=== PATIENT | female | born 1955 | race Caucasian/White ===

== ENCOUNTER 2017-06-08 10:24 | Inpatient (IN) | payer MEDICAID ==
[~2017-06-08] VITALS: Ht 152.4 cm; Wt 10.3 kg
[~2017-06-08 10:24] MED LIST: CLOP75TA28 PO; FLUO-125 PO; LEVO50TA7 PO; OLAN5TAB30 PO; TIZA4CAP5 PO; VERA1TAB9 PO
[2017-06-08] MEDS ORDERED: SODIUM CHLORIDE 0.9% 1,000 ML IV ONE (11:45)
[2017-06-08 12:03] LABS: Albumin 1.1 g/dL (3.4-5.0); Anion Gap 13 (5-15); Aspartate Aminotransferase 19 U/L (15-37); BUN/Creatinine Ratio 11.2; Blood Urea Nitrogen 27 mg/dL (7-18); Calcium 7.1 mg/dL (8.5-10.1); Carbon Dioxide 14 mmol/L (21-32); Chloride 118 mmol/L (98-107); GFR African American 26 mL/min; GFR Non-African American 22 mL/min; Glucose 106 mg/dL (74-106); Potassium 4.5 mmol/L (3.5-5.1); Sodium 145 mmol/L (136-145)
[2017-06-08 12:08] LABS: Alkaline Phosphatase 137 U/L (45-117); Bilirubin, Total 0.1 mg/dL (0.2-1.0); Total Protein 4.4 g/dL (6.4-8.2)
[2017-06-08 12:31] LABS: Basophils # (auto) 0.1 uL; Hematocrit 27.2 % (36.0-46.0); Hemoglobin 8.4 g/dL (12.2-16.2); Mean Corpuscular Hgb Conc. 30.8 g/dL (32.0-36.0); Monocytes # (auto) 0.4 uL; White Blood Cell 10.1 10^3/uL (4.4-10.8)
[2017-06-08 12:32] LABS: Basophils % (auto) 0.8 % (0.0-2.0); Eosinophils # (auto) 0 uL; Eosinophils % (auto) 0.5 % (0.0-7.0); Lymphocytes # (auto) 1.2 uL; Lymphocytes % (auto) 12.3 % (10.0-50.0); Mean Corpuscular Hemoglobin 32.8 pg (28.0-32.0); Mean Corpuscular Volume 106.5 fL (80.0-100.0); Mean Platelet Volume 7.5 fL (6.9-10.8); Monocytes % (auto) 3.6 % (0.0-12.0); Neutrophils # (auto) 8.4 uL; Neutrophils % (auto) 82.8 % (37.0-80.0); Nucleated Red Blood Cells % 0.1 %; Platelet Count (auto) 443 10^3/uL (140-450)
[2017-06-08] MEDS ORDERED: NITROGLYCERIN 0.4 MG SL TAB SL PRN (14:30)
[2017-06-08] MEDS ORDERED: cefTRIAXone 1GM/50ML D5W 50 ML IV ONE (14:30)
[2017-06-08] MEDS ORDERED: MORPHINE SULF INJ 2 MG/ML SYRINGE 1ML IV PRN (14:30)
[2017-06-08] MEDS: SODIUM CHLORIDE 0.9% 1,000 ML IV SCH (15:17)
[2017-06-08 15:20] LABS: Urine Bilirubin Negative (Negative); Urine Blood 1+ /uL (Negative); Urine Color Yellow (Yellow); Urine Glucose Normal (Normal); Urine Ketone Negative (Negative); Urine Nitrite Negative (Negative); Urine RBC 13 /hpf (0 - 4); Urine Urobilinogen Normal (Negative); Urine WBC Clumps PRESENT /hpf (None Seen)
[2017-06-08] MEDS ORDERED: LABETALOL HCL 5 MG/ML 4ML SYRINGE IV PRN ×2 (16:45)
[2017-06-08 17:38] LABS: Temperature: 24.3 C (20.0-25.0)
[2017-06-08] MEDS ORDERED: ENOXAPARIN SOD 30 MG/0.3 ML SYRINGE SC ONE (18:15)
[2017-06-08 20:10] VITALS: BP 99/64
[2017-06-08 22:00] VITALS: BP 99/64
[2017-06-08] MEDS: ATORVASTATIN 20 MG TAB PO SCH (22:30)
[2017-06-09] MEDS: SODIUM CHLORIDE 0.9% 1,000 ML IV SCH ×2 (00:30→06:14)
[2017-06-09 05:00] VITALS: BP 92/58
[2017-06-09] MEDS ORDERED: LEVOTHYROXINE SODIUM 25 MCG TAB PO SCH (07:00)
[2017-06-09 07:46] LABS: Eosinophils # (auto) 0.1 uL; Lymphocytes # (auto) 2.2 uL; Monocytes # (auto) 0.3 uL
[2017-06-09 07:50] LABS: BUN/Creatinine Ratio 12.5; Basophils # (auto) 0.1 uL; Basophils % (auto) 1.1 % (0.0-2.0); Calcium 6.9 mg/dL (8.5-10.1); Eosinophils % (auto) 0.8 % (0.0-7.0); Hematocrit 28.6 % (36.0-46.0); Hemoglobin 9.6 g/dL (12.2-16.2); Mean Corpuscular Hemoglobin 33.8 pg (28.0-32.0); Mean Corpuscular Hgb Conc. 33.6 g/dL (32.0-36.0); Mean Corpuscular Volume 100.7 fL (80.0-100.0); Mean Platelet Volume 7.1 fL (6.9-10.8); Neutrophils # (auto) 5.8 uL; Neutrophils % (auto) 68.1 % (37.0-80.0); Nucleated Red Blood Cells % 0.1 %; Platelet Count (auto) 498 10^3/uL (140-450); Potassium 4.6 mmol/L (3.5-5.1); Red Cell Distribution Width 16.7 % (11.8-14.3); White Blood Cell 8.6 10^3/uL (4.4-10.8)
[2017-06-09 08:00] VITALS: BP 92/57
[2017-06-09 09:04] VITALS: BP 92/57
[2017-06-09] MEDS: PANTOPRAZOLE 40 MG TAB PO SCH (09:41)
[2017-06-09] MEDS: ENOXAPARIN SOD 30 MG/0.3 ML SYRINGE SC SCH (09:41)
[2017-06-09] MEDS: cefTRIAXone 1GM/50ML D5W 50 ML IV SCH (09:41)
[2017-06-09] MEDS: CLOPIDOGREL BISULFATE 75 MG TAB PO SCH (09:41)
[2017-06-09] MEDS: SOD CHL 0.45% 1,000 ML IV SCH ×2 (10:15→23:35)
[2017-06-09] MEDS ORDERED: LEVOTHYROXINE SODIUM 100 MCG/5 ML INJ IV ONE (10:15)
[2017-06-09] MEDS ORDERED: FLUoxetine HCL 20 MG CAP PO ONE (10:30)
[2017-06-09 14:20] VITALS: BP 123/69
[2017-06-09 16:56] VITALS: BP 121/76
[2017-06-09] MEDS ORDERED: MIRT30TA PO (19:27)
[2017-06-09] MEDS ORDERED: OLAN5TAB30 PO (19:27)
[2017-06-09] MEDS ORDERED: HYDR-4683 PO (19:27)
[2017-06-09] MEDS: ATORVASTATIN 20 MG TAB PO SCH (21:31)
[2017-06-10 01:00] VITALS: BP 113/62
[2017-06-10] MEDS: SOD CHL 0.45% 1,000 ML IV SCH (03:24)
[2017-06-10 04:44] VITALS: BP 132/71
[2017-06-10] MEDS: LEVOTHYROXINE SODIUM 25 MCG TAB PO SCH (06:00)
[2017-06-10 07:19] LABS: BUN/Creatinine Ratio 10.5; Calcium 7.3 mg/dL (8.5-10.1); Potassium 4.3 mmol/L (3.5-5.1)
[2017-06-10 08:52] VITALS: BP 134/80
[2017-06-10] MEDS: cefTRIAXone 1GM/50ML D5W 50 ML IV SCH (08:57)
[2017-06-10] MEDS: PANTOPRAZOLE 40 MG TAB PO SCH (10:56)
[2017-06-10] MEDS: FLUoxetine HCL 20 MG CAP PO SCH (10:56)
[2017-06-10] MEDS: CLOPIDOGREL BISULFATE 75 MG TAB PO SCH (10:56)
[2017-06-10] MEDS: ENOXAPARIN SOD 30 MG/0.3 ML SYRINGE SC SCH (10:56)
[2017-06-10 13:00] VITALS: BP 126/67
[2017-06-10] MEDS: SODIUM BICARBONATE 50ML VIAL 50 ML in SOD CHL 0.45% 1,000 ML IV SCH (13:00)
[2017-06-10] MEDS ORDERED: MULTIPLE VITAMINS W/ MINERALS TAB PO ONE (13:30)
[2017-06-10] MEDS ORDERED: ASCORBIC ACID 500 MG TAB PO ONE (13:30)
[2017-06-10 16:57] VITALS: BP 125/74
[2017-06-10] MEDS: ATORVASTATIN 20 MG TAB PO SCH (21:27)
[2017-06-10] MEDS: ASCORBIC ACID 500 MG TAB PO SCH (21:27)
[2017-06-10 21:58] VITALS: BP 135/73
[2017-06-11 05:00] VITALS: BP 126/70
[2017-06-11] MEDS: LEVOTHYROXINE SODIUM 25 MCG TAB PO SCH (06:02)
[2017-06-11 06:37] LABS: Calcium 7.3 mg/dL (8.5-10.1); Potassium 4.4 mmol/L (3.5-5.1)
[2017-06-11 06:41] LABS: BUN/Creatinine Ratio 10.3
[2017-06-11 08:00] VITALS: BP 130/74
[2017-06-11] MEDS: FLUoxetine HCL 20 MG CAP PO SCH (10:00)
[2017-06-11] MEDS: ASCORBIC ACID 500 MG TAB PO SCH ×2 (10:00→21:52)
[2017-06-11] MEDS: ENOXAPARIN SOD 30 MG/0.3 ML SYRINGE SC SCH (10:00)
[2017-06-11] MEDS: CLOPIDOGREL BISULFATE 75 MG TAB PO SCH (10:00)
[2017-06-11] MEDS: cefTRIAXone 1GM/50ML D5W 50 ML IV SCH (10:00)
[2017-06-11] MEDS: SODIUM BICARBONATE 50ML VIAL 50 ML in SOD CHL 0.45% 1,000 ML IV SCH (10:01)
[2017-06-11] MEDS: PANTOPRAZOLE 40 MG TAB PO SCH (10:01)
[2017-06-11] MEDS: MULTIPLE VITAMINS W/ MINERALS TAB PO SCH (10:01)
[2017-06-11 12:00] VITALS: BP 126/70
[2017-06-11] MEDS: D5W 5% 1,000 ML IV SCH (13:37)
[2017-06-11] MEDS ORDERED: MORPHINE SULFATE 10 MG/ML INJ 1ML SDV IV PRN (16:15)
[2017-06-11 17:05] VITALS: BP 123/68
[2017-06-11 21:08] VITALS: BP 127/71
[2017-06-11] MEDS: ATORVASTATIN 20 MG TAB PO SCH (21:52)
[2017-06-12] MEDS: D5W 5% 1,000 ML IV SCH (01:26)
[2017-06-12 05:00] VITALS: BP 129/75
[2017-06-12] MEDS: LEVOTHYROXINE SODIUM 25 MCG TAB PO SCH ×2 (05:57→09:35)
[2017-06-12 06:37] LABS: BUN/Creatinine Ratio 10.1; Calcium 7.2 mg/dL (8.5-10.1); Potassium 3.7 mmol/L (3.5-5.1)
[2017-06-12 08:00] VITALS: BP 124/73
[2017-06-12] MEDS: cefTRIAXone 1GM/50ML D5W 50 ML IV SCH (09:15)
[2017-06-12 09:28] VITALS: BP 124/73
[2017-06-12] MEDS: ENOXAPARIN SOD 30 MG/0.3 ML SYRINGE SC SCH (09:35)
[2017-06-12] MEDS: MULTIPLE VITAMINS W/ MINERALS TAB PO SCH (09:35)
[2017-06-12] MEDS: CLOPIDOGREL BISULFATE 75 MG TAB PO SCH (09:35)
[2017-06-12] MEDS: FLUoxetine HCL 20 MG CAP PO SCH (09:36)
[2017-06-12] MEDS: ASCORBIC ACID 500 MG TAB PO SCH (09:36)
[2017-06-12] MEDS: PANTOPRAZOLE 40 MG TAB PO SCH (09:36)
[2017-06-12] MEDS ORDERED: ATOR20TA50 PO (11:16)
== END 2017-06-12 12:40 | disposition home or self-care (01) | DRG 720 ==
LOC: EDBD 10:24 → ER 10:24 → TELE 10:25 → TELE-CENTR 20:10
PROVIDERS: ADMIT Internal Medicine; ATTEND Internal Medicine
DX: A41.9 Sepsis, unspecified organism (principal); I63.512 Cerebral infarction due to unspecified occlusion or stenosis of left middle cerebral artery; E43 Unspecified severe protein-calorie malnutrition; L89.313 Pressure ulcer of right buttock, stage 3; I95.9 Hypotension, unspecified; E87.8 Other disorders of electrolyte and fluid balance, not elsewhere classified; E87.1 Hypo-osmolality and hyponatremia; N18.3 Chronic kidney disease, stage 3 (moderate); I69.351 Hemiplegia and hemiparesis following cerebral infarction affecting right dominant side; E83.51 Hypocalcemia; J44.9 Chronic obstructive pulmonary disease, unspecified; I12.9 Hypertensive chronic kidney disease with stage 1 through stage 4 chronic kidney disease, or unspecified chronic kidney disease; N39.0 Urinary tract infection, site not specified; E03.9 Hypothyroidism, unspecified; D64.9 Anemia, unspecified; E78.5 Hyperlipidemia, unspecified; G89.29 Other chronic pain; M54.5 Low back pain; R47.1 Dysarthria and anarthria; G40.909 Epilepsy, unspecified, not intractable, without status epilepticus; R47.01 Aphasia; Z79.02 Long term (current) use of antithrombotics/antiplatelets; Z79.899 Other long term (current) drug therapy; Z68.21 Body mass index [BMI] 21.0-21.9, adult
CPT/HCPCS: 36415; 51702; 70450; 70551; 71010; 78582; 80048; 80053; 81001; 82270; 82533; 82607; 82746; 83540; 83550; 83735; 84443; 84484; 85025; 85379; 87086; 92610; 93005; 94761; 95819; 96361; 96365; 96372; 97163; J0696; J3490

== ENCOUNTER 2017-07-22 10:54 | Inpatient (IN) | payer MEDICAID ==
[~2017-07-22] VITALS: Ht 160 cm; Wt 55.0 kg
[2017-07-22] VITALS (7 sets, daily range): BP systolic 78–94; BP diastolic 31–67
[~2017-07-22 10:54] MED LIST changes: +ATOR20TA50 PO; +HYDR-4683 PO; +MIRT30TA PO
[2017-07-22] MEDS ORDERED: SODIUM CHLORIDE 0.9% 1,000 ML IVB ONE (11:03)
[2017-07-22 11:32] LABS: Eosinophils # (auto) 0 uL; Hemoglobin 8.4 g/dL (12.2-16.2); Mean Corpuscular Hemoglobin 31.1 pg (28.0-32.0); Mean Corpuscular Hgb Conc. 28.2 g/dL (32.0-36.0); Monocytes # (auto) 0.5 uL
[2017-07-22 11:34] LABS: Basophils # (auto) 0 uL; Basophils % (auto) 0.5 % (0.0-2.0); Hematocrit 29.7 % (36.0-46.0); Lymphocytes # (auto) 1.1 uL; Lymphocytes % (auto) 12.8 % (10.0-50.0); Mean Corpuscular Volume 110.4 fL (80.0-100.0); Monocytes % (auto) 5.9 % (0.0-12.0); Neutrophils # (auto) 7.2 uL; Neutrophils % (auto) 80.8 % (37.0-80.0); Nucleated Red Blood Cells % 0.6 %; Platelet Count (auto) 205 10^3/uL (140-450); White Blood Cell 8.9 10^3/uL (4.4-10.8)
[2017-07-22 11:35] LABS: Red Cell Distribution Width 22.7 % (11.8-14.3)
[2017-07-22 11:51] LABS: Albumin 1.1 g/dL (3.4-5.0); Anion Gap 17 (5-15); Blood Urea Nitrogen 69 mg/dL (7-18); Calcium 7.5 mg/dL (8.5-10.1); Carbon Dioxide 10 mmol/L (21-32); Chloride 148 mmol/L (98-107); Glucose 58 mg/dL (74-106); Magnesium 2.5 mg/dL (1.6-2.6); Potassium 4.5 mmol/L (3.5-5.1)
[2017-07-22 11:54] LABS: Aspartate Aminotransferase 64 U/L (15-37); BUN/Creatinine Ratio 11.6; GFR African American 9 mL/min; GFR Non-African American 8 mL/min
[2017-07-22 11:56] LABS: INR 1.12 (0.9-1.15); Partial Thromboplastin Time 21.7 sec (22.64-33.71); Prothrombin Time 12.2 sec (9.37-12.3)
[2017-07-22 12:01] LABS: Alkaline Phosphatase 101 U/L (45-117); Bilirubin, Total 0.3 mg/dL (0.2-1.0); Total Protein 4.9 g/dL (6.4-8.2)
[2017-07-22 12:25] LABS: Sodium 175 mmol/L (136-145)
[2017-07-22 12:26] LABS: Anisocytosis Slight; Macrocytosis Moderate; Ovalocytes FEW; Platelet Estimate Adequate
[2017-07-22] MEDS ORDERED: SOD CHL 0.45% 1,000 ML IV ONE (12:30)
[2017-07-22] MEDS ORDERED: DEXTROSE (50%) 50ML SYRG IV ONE (12:30)
[2017-07-22] MEDS ORDERED: TEMAZEPAM 15 MG CAP PO PRN (14:45)
[2017-07-22] MEDS ORDERED: PROMETHAZINE HCL 25 MG/ML 1ML IV PRN (14:45)
[2017-07-22] MEDS ORDERED: HYDROcodone-ACET 5/325MG TAB PO PRN (14:45)
[2017-07-22] MEDS ORDERED: MORPHINE SULF INJ 2 MG/ML SYRINGE 1ML IV PRN ×2 (14:45)
[2017-07-22] MEDS ORDERED: ACETAMINOPHEN 500 MG TAB PO PRN (14:45)
[2017-07-22] MEDS ORDERED: NITROGLYCERIN 0.4 MG SL TAB SL PRN (14:45)
[2017-07-22] MEDS ORDERED: LORazepam 0.5 MG TAB PO PRN (14:45)
[2017-07-22] MEDS ORDERED: LACTULOSE 20Gm/30ML SOLN PO PRN (14:45)
[2017-07-22] MEDS ORDERED: D5W/SOD CHL 0.45% 1,000 ML IV SCH (14:45)
[2017-07-22 15:44] LABS: Urine Bilirubin Negative (Negative); Urine Blood 2+ /uL (Negative); Urine Color Yellow (Yellow); Urine Glucose Normal (Normal); Urine Ketone Negative (Negative); Urine Nitrite Negative (Negative); Urine Urobilinogen Normal (Negative)
[2017-07-22 15:50] LABS: BUN/Creatinine Ratio 12.3; Potassium 4.7 mmol/L (3.5-5.1)
[2017-07-22] MEDS: D5W/SOD CHL 0.2% 1,000 ML IV SCH (16:03)
[2017-07-22 16:04] LABS: Urine RBC 2 /hpf (0 - 4); Urine Squamous Epithelial Cell FEW /hpf (<5)
[2017-07-22 16:05] LABS: Urine Mucus FEW (None Seen)
[2017-07-22] MEDS ORDERED: cefTRIAXone 1GM/50ML D5W 50 ML IV ONE (16:30)
[2017-07-22 16:50] LABS: Temperature: 23.3 C (20.0-25.0)
[2017-07-22 19:05] LABS: Hematocrit 27.1 % (36.0-46.0)
[2017-07-22] MEDS: ATORVASTATIN 20 MG TAB PO SCH (22:00)
[2017-07-23] VITALS (89 sets, daily range): BP systolic 64–151; BP diastolic 33–118
[2017-07-23] MEDS: D5W/SOD CHL 0.2% 1,000 ML IV SCH ×2 (02:12→11:45)
[2017-07-23 04:09] LABS: Basophils # (auto) 0 uL; Eosinophils # (auto) 0 uL; Eosinophils % (auto) 0.1 % (0.0-7.0); Hematocrit 23.7 % (36.0-46.0); Hemoglobin 7.4 g/dL (12.2-16.2); Lymphocytes # (auto) 1.3 uL; Monocytes # (auto) 0.5 uL; White Blood Cell 7.4 10^3/uL (4.4-10.8)
[2017-07-23 04:12] LABS: Basophils % (auto) 0.4 % (0.0-2.0); Mean Corpuscular Hemoglobin 31.4 pg (28.0-32.0); Mean Corpuscular Hgb Conc. 31.2 g/dL (32.0-36.0); Mean Corpuscular Volume 100.7 fL (80.0-100.0); Mean Platelet Volume 9.6 fL (6.9-10.8); Neutrophils # (auto) 5.6 uL; Neutrophils % (auto) 75.5 % (37.0-80.0); Nucleated Red Blood Cells % 0.7 %; Platelet Count (auto) 172 10^3/uL (140-450)
[2017-07-23] MEDS ORDERED: NOREPINEPHRINE 8 MG/250ML KIT 250 ML IV ONE (04:25)
[2017-07-23 04:30] LABS: Red Cell Distribution Width 21.4 % (11.8-14.3)
[2017-07-23 04:55] LABS: Platelet Estimate Adequate
[2017-07-23 04:56] LABS: Albumin 1.1 g/dL (3.4-5.0); Anisocytosis Slight; Bilirubin, Total 0.1 mg/dL (0.2-1.0); Calcium 6.8 mg/dL (8.5-10.1); Macrocytosis Slight; Total Protein 4.4 g/dL (6.4-8.2)
[2017-07-23] MEDS: NOREPINEPHRINE 8 MG/250ML KIT 250 ML IV SCH (05:30)
[2017-07-23] MEDS ORDERED: cefTRIAXone 1GM/50ML D5W 50 ML IV SCH (09:00)
[2017-07-23] MEDS: ASPirin 81 mg TAB PO SCH (10:00)
[2017-07-23] MEDS: ENOXAPARIN SOD 30 MG/0.3 ML SYRINGE SC SCH (10:00)
[2017-07-23] MEDS: PANTOPRAZOLE 40 MG TAB PO SCH (10:03)
[2017-07-23] MEDS: cefTRIAXone 1GM/10ml IVPUSH 10 ML IV SCH (10:24)
[2017-07-23 13:48] LABS: Calcium 6.9 mg/dL (8.5-10.1); Potassium 3.8 mmol/L (3.5-5.1)
[2017-07-23] MEDS: SODIUM BICARBONATE 50ML VIAL 50 ML in D5W 5% 1,000 ML IV SCH (14:57)
[2017-07-23 20:38] LABS: BUN/Creatinine Ratio 12.3; Calcium 6.7 mg/dL (8.5-10.1); Potassium 3.6 mmol/L (3.5-5.1)
[2017-07-23] MEDS: ATORVASTATIN 20 MG TAB PO SCH (22:00)
[2017-07-24] VITALS (82 sets, daily range): BP systolic 82–125; BP diastolic 35–90
[2017-07-24] MEDS: SODIUM BICARBONATE 50ML VIAL 50 ML in D5W 5% 1,000 ML IV SCH ×3 (00:30→21:32)
[2017-07-24] MEDS: NOREPINEPHRINE 8 MG/250ML KIT 250 ML IV SCH (04:54)
[2017-07-24 05:06] LABS: Mean Corpuscular Hemoglobin 31.2 pg (28.0-32.0)
[2017-07-24 05:08] LABS: Hemoglobin 7.9 g/dL (12.2-16.2); Mean Corpuscular Hgb Conc. 31.7 g/dL (32.0-36.0); Mean Corpuscular Volume 98.5 fL (80.0-100.0); Mean Platelet Volume 9.7 fL (6.9-10.8); Platelet Count (auto) 169 10^3/uL (140-450); White Blood Cell 7.6 10^3/uL (4.4-10.8)
[2017-07-24 05:13] LABS: Red Cell Distribution Width 20.9 % (11.8-14.3)
[2017-07-24 05:37] LABS: BUN/Creatinine Ratio 12.5; Calcium 6.7 mg/dL (8.5-10.1); Potassium 3.3 mmol/L (3.5-5.1)
[2017-07-24 06:40] LABS: Platelet Estimate Adequate
[2017-07-24 06:42] LABS: Anisocytosis Slight; Hypochromia Slight; Metamyelocytes % 0; Myelocytes % 3; Promyelocytes % 0; Reactive Lymphocytes 0
[2017-07-24] MEDS: PANTOPRAZOLE 40 MG TAB PO SCH (09:51)
[2017-07-24] MEDS: ENOXAPARIN SOD 30 MG/0.3 ML SYRINGE SC SCH (10:00)
[2017-07-24] MEDS: ASPirin 81 mg TAB PO SCH (10:00)
[2017-07-24] MEDS ORDERED: POTASSIUM CHL 20 Meq TABLET PO ONE (10:30)
[2017-07-24] MEDS ORDERED: LIDOCAINE 1% HCL (LOCAL ANESTH.) INJ 20ML MDV ID ONE (12:45)
[2017-07-24] MEDS ORDERED: POTASSIUM CHL 10% (20 MEQ/15ML) 15ml ORAL SOLN PO ONE (13:15)
[2017-07-24] MEDS: ALBUMIN 25% 100 ML IV SCH ×2 (13:21→21:39)
[2017-07-24] MEDS: cefTRIAXone 1GM/10ml IVPUSH 10 ML IV SCH (15:10)
[2017-07-24] MEDS: POTASSIUM CHL 20MEQ/50ML 50 ML IV SCH ×2 (15:20→16:30)
[2017-07-24] MEDS: ATORVASTATIN 20 MG TAB PO SCH (21:38)
[2017-07-24] MEDS: SODIUM CHLOR 0.9% PF (SALINE LOCK) 10ML VIAL IV SCH (21:38)
[2017-07-25] VITALS (98 sets, daily range): BP systolic 67–145; BP diastolic 34–99
[2017-07-25] MEDS: NOREPINEPHRINE 8 MG/250ML KIT 250 ML IV SCH ×3 (00:45→09:21)
[2017-07-25] MEDS: ALBUMIN 25% 100 ML IV SCH ×3 (06:10→21:38)
[2017-07-25 06:59] LABS: Hematocrit 20.7 % (36.0-46.0); Mean Corpuscular Hgb Conc. 32.1 g/dL (32.0-36.0); Mean Corpuscular Volume 96.6 fL (80.0-100.0); Mean Platelet Volume 9.8 fL (6.9-10.8); Platelet Count (auto) 140 10^3/uL (140-450); White Blood Cell 6.2 10^3/uL (4.4-10.8)
[2017-07-25 07:00] LABS: Red Cell Distribution Width 20.4 % (11.8-14.3)
[2017-07-25 07:01] LABS: Hemoglobin 6.7 g/dL (12.2-16.2)
[2017-07-25 07:02] LABS: Metamyelocytes % 0; Myelocytes % 0; Promyelocytes % 0; Reactive Lymphocytes 0
[2017-07-25 07:33] LABS: Albumin 2.1 g/dL (3.4-5.0); BUN/Creatinine Ratio 12.2; Bilirubin, Total 0.3 mg/dL (0.2-1.0); Calcium 6.5 mg/dL (8.5-10.1); Potassium 4.2 mmol/L (3.5-5.1); Total Protein 4.4 g/dL (6.4-8.2)
[2017-07-25] MEDS ORDERED: DEXTROSE (50%) 50ML SYRG IV PRN (08:30)
[2017-07-25] MEDS: SODIUM BICARBONATE 50ML VIAL 50 ML in D5W 5% 1,000 ML IV SCH ×2 (09:21→21:01)
[2017-07-25] MEDS: cefTRIAXone 1GM/10ml IVPUSH 10 ML IV SCH (09:21)
[2017-07-25] MEDS: SODIUM CHLOR 0.9% PF (SALINE LOCK) 10ML VIAL IV SCH ×2 (09:30→21:39)
[2017-07-25] MEDS: ASPirin 81 mg TAB PO SCH (09:31)
[2017-07-25] MEDS: PANTOPRAZOLE 40 MG TAB PO SCH (09:31)
[2017-07-25] MEDS: ENOXAPARIN SOD 30 MG/0.3 ML SYRINGE SC SCH (09:31)
[2017-07-25] MEDS ORDERED: FUROSEMIDE 100 MG/10ML VIAL IV ONE (10:00)
[2017-07-25] MEDS ORDERED: SODIUM PHOSPHATES 20 MEQ in SODIUM CHL 0.9% 100 ML IV ONE (10:00)
[2017-07-25 10:58] LABS: Platelet Estimate Adequate
[2017-07-25 10:59] LABS: Anisocytosis Slight; Hypochromia Slight; Poikilocytosis Slight
[2017-07-25 11:33] LABS: Base Excess -15.7 mmol/L (-2.0-2.0); Blood 02Sat 92.7 % (96-100); Blood COHb 0.4 % (0.5-1.5); Blood MetHb 0.5 % (0.0-1.5); HCO3 8.3 mmol/L (22-26.0); HHb 7.2 % (0.0-5.0); MODE NASAL CANNULA; O2Hb 91.9 % (94.0-97.0); PCO2 15.3 mmHg (35.0-45.0); PCO2(T) 15.3 mmHg (35.0-45.0); PO2 74.5 mmHg (80.0-100.0); PO2(T) 74.5 mmHg (80.0-100.0); Sample Type Arterial
[2017-07-25] MEDS: ACCU-CHEK COMFORT CURVE STRIP VI SCH ×2 (12:12→17:49)
[2017-07-25] MEDS: InsuLIN REG 1unit/0.01ml Soln (100units/ml) SC SCH ×2 (12:17→18:05)
[2017-07-25] MEDS: ALBUTEROL SULF 2.5 MG/0.5ML(0.5%) NEB SOLN NEB SCH ×3 (13:56→22:21)
[2017-07-25] MEDS: IPRATROPIUM BROM 0.5 MG/2.5ML INH SOL NEB SCH ×3 (13:56→22:21)
[2017-07-25] MEDS: ACETYLCYSTEINE 10 %(100MG/ML) SOL 4ML NEB SCH ×3 (13:57→22:22)
[2017-07-25] MEDS: ATORVASTATIN 20 MG TAB PO SCH (21:36)
[2017-07-25] MEDS: MUPIROCIN 2% OINT 22GM EACHNOSTRI SCH (21:37)
[2017-07-25] MEDS ORDERED: ACETYLCYSTEINE 20%(200MG/ML) SOL 4ML ONE (23:59)
[2017-07-26] VITALS (43 sets, daily range): BP systolic 76–166; BP diastolic 29–83
[2017-07-26] MEDS: ACCU-CHEK COMFORT CURVE STRIP VI SCH ×4 (00:50→17:57)
[2017-07-26] MEDS: InsuLIN REG 1unit/0.01ml Soln (100units/ml) SC SCH ×4 (00:56→17:57)
[2017-07-26] MEDS: ALBUTEROL SULF 2.5 MG/0.5ML(0.5%) NEB SOLN NEB SCH ×6 (02:01→22:03)
[2017-07-26] MEDS: IPRATROPIUM BROM 0.5 MG/2.5ML INH SOL NEB SCH ×6 (02:01→22:03)
[2017-07-26] MEDS: ACETYLCYSTEINE 10 %(100MG/ML) SOL 4ML NEB SCH ×4 (02:01→22:03)
[2017-07-26] MEDS: SODIUM BICARBONATE 50ML VIAL 50 ML in D5W 5% 1,000 ML IV SCH ×2 (05:00→15:30)
[2017-07-26] MEDS ORDERED: ACETYLCYSTEINE 20%(200MG/ML) SOL 4ML ONE (05:52)
[2017-07-26 06:32] LABS: Mean Corpuscular Hemoglobin 31.1 pg (28.0-32.0); Mean Platelet Volume 9.9 fL (6.9-10.8)
[2017-07-26 06:36] LABS: Hematocrit 24.1 % (36.0-46.0); Mean Corpuscular Hgb Conc. 33.4 g/dL (32.0-36.0); Red Cell Distribution Width 17.2 % (11.8-14.3); White Blood Cell 12.2 10^3/uL (4.4-10.8)
[2017-07-26 06:42] LABS: Metamyelocytes % 0; Myelocytes % 0; Platelet Count (auto) 94 10^3/uL (140-450); Promyelocytes % 0; Reactive Lymphocytes 0
[2017-07-26 06:53] LABS: BUN/Creatinine Ratio 12.7; Bilirubin, Total 0.6 mg/dL (0.2-1.0); Calcium 6.3 mg/dL (8.5-10.1); Magnesium 1.6 mg/dL (1.6-2.6); Phosphorus 3.7 mg/dL (2.5-4.90); Potassium 3.5 mmol/L (3.5-5.1); Total Protein 4.9 g/dL (6.4-8.2)
[2017-07-26 08:16] LABS: Burr Cells FEW; Large Platelets FEW; Platelet Estimate Decreased
[2017-07-26 08:19] LABS: Anisocytosis Slight
[2017-07-26] MEDS ORDERED: ETOMIDATE (2MG/ML) 20ML VIAL IV ONE (08:36)
[2017-07-26] MEDS ORDERED: ROCURONIUM 10MG/ML 10ML VIAL IV ONE (08:36)
[2017-07-26] MEDS ORDERED: SUCCINYLCHOLINE CHLORIDE 20 MG/ML 10ML VIAL IV ONE (08:37)
[2017-07-26] MEDS ORDERED: SODIUM BICARBONATE 8.4% INJ 50ML SYRINGE ONE ×2 (08:42→08:43)
[2017-07-26] MEDS: cefTRIAXone 1GM/10ml IVPUSH 10 ML IV SCH (09:00)
[2017-07-26] MEDS ORDERED: MIDAZOLAM DRIP 50 mg/50mL 50 ML IV ONE (09:08)
[2017-07-26 09:10] LABS: Mean Corpuscular Hemoglobin 30.9 pg (28.0-32.0); Mean Corpuscular Volume 96.3 fL (80.0-100.0); Mean Platelet Volume 10.3 fL (6.9-10.8); Platelet Count (auto) 100 10^3/uL (140-450)
[2017-07-26 09:12] LABS: Hematocrit 25.3 % (36.0-46.0); Hemoglobin 8.1 g/dL (12.2-16.2); Red Cell Distribution Width 18.3 % (11.8-14.3); White Blood Cell 15.4 10^3/uL (4.4-10.8)
[2017-07-26 09:20] LABS: Metamyelocytes % 0; Myelocytes % 0; Promyelocytes % 0; Reactive Lymphocytes 0
[2017-07-26] MEDS ORDERED: MAGNESIUM SULFATE 1GM/100ML 100 ML IV ONE (09:45)
[2017-07-26 09:47] LABS: Albumin 2.8 g/dL (3.4-5.0); BUN/Creatinine Ratio 11.9; Bilirubin, Total 0.5 mg/dL (0.2-1.0); Potassium 3.8 mmol/L (3.5-5.1); Total Protein 4.6 g/dL (6.4-8.2)
[2017-07-26] MEDS ORDERED: IODIXANOL 320MG/ML 100ML BTL IV ONE (09:53)
[2017-07-26] MEDS ORDERED: LIDOCAINE 2%HCL (LOCAL ANESTH.) INJ 20ML MDV ONE (09:53)
[2017-07-26] MEDS: MUPIROCIN 2% OINT 22GM EACHNOSTRI SCH ×2 (10:00→22:47)
[2017-07-26] MEDS: SODIUM CHLOR 0.9% PF (SALINE LOCK) 10ML VIAL IV SCH ×2 (10:00→22:47)
[2017-07-26] MEDS: ASPirin 81 mg TAB PO SCH (10:00)
[2017-07-26] MEDS: ENOXAPARIN SOD 30 MG/0.3 ML SYRINGE SC SCH (10:00)
[2017-07-26 10:05] LABS: Platelet Estimate Decreased
[2017-07-26 10:06] LABS: Anisocytosis Slight; Burr Cells FEW
[2017-07-26 10:12] LABS: Base Excess -9.3 mmol/L (-2.0-2.0); Blood 02Sat 95.1 % (96-100); Blood COHb 0.3 % (0.5-1.5); Blood MetHb 0.4 % (0.0-1.5); HCO3 14.2 mmol/L (22-26.0); HHb 4.9 % (0.0-5.0); MODE VENT - A/C; O2Hb 94.4 % (94.0-97.0); PCO2 23.7 mmHg (35.0-45.0); PCO2(T) 23.7 mmHg (35.0-45.0); PO2 87.9 mmHg (80.0-100.0); PO2(T) 87.9 mmHg (80.0-100.0); Sample Type Arterial; pH 7.394 (7.350-7.450)
[2017-07-26 10:20] LABS: Large Platelets FEW
[2017-07-26] MEDS ORDERED: ANGIOMAX 250 MG VIAL IV ONE (10:27)
[2017-07-26] MEDS ORDERED: SODIUM CHL 0.9% 0 ML ONE (10:27)
[2017-07-26] MEDS ORDERED: EPTIFIBATIDE INJ (2MG/ML) 10ML VIAL IV ONE (10:27)
[2017-07-26] MEDS ORDERED: DOPamine 1600MCG/ML D5W 250 ML IV ONE (10:28)
[2017-07-26] MEDS ORDERED: PANTOPRAZOLE 40 MG/10 ML VIAL IV ONE (10:30)
[2017-07-26] MEDS ORDERED: FUROSEMIDE 100 MG/10ML VIAL IV ONE (10:30)
[2017-07-26] MEDS ORDERED: NOREPINEPHRINE 8 MG/250ML KIT 0 ML IV ONE (10:53)
[2017-07-26] MEDS: MIDAZOLAM DRIP 50 mg/50mL 50 ML IV SCH ×2 (10:59→21:22)
[2017-07-26] MEDS ORDERED: PHENYLEPHRINE INJ 20 MG in SODIUM CHL 0.9% 250 ML IV SCH ×3 (11:07→13:32)
[2017-07-26] MEDS ORDERED: DOPamine 1600MCG/ML D5W 250 ML IV SCH (11:07)
[2017-07-26] MEDS ORDERED: VASOPRESSIN 20 UNIT/ML ONE ×2 (11:43→11:56)
[2017-07-26] MEDS ORDERED: VASOPRESSIN IV SCH (11:45)
[2017-07-26] MEDS ORDERED: SODIUM CHL 0.9% IV SCH (11:45)
[2017-07-26] MEDS ORDERED: AMPICILLIN INJ 500 MG in SODIUM CHL 0.9% 50 ML IV SCH (12:00)
[2017-07-26] MEDS ORDERED: VASOPRESSIN 50 UNITS in SODIUM CHL 0.9% 247.5 ML IV SCH (12:30)
[2017-07-26] MEDS: VASOPRESSIN 50 UNITS in SODIUM CHL 0.9% 247.5 ML IV SCH ×2 (12:45→23:10)
[2017-07-26] MEDS ORDERED: PHENYLEPHRINE HCL 10 MG/ML VL ONE (13:18)
[2017-07-26] MEDS: PHENYLEPHRINE INJ 20 MG in D5W 5% 250 ML IV SCH ×3 (13:45→23:00)
[2017-07-26 16:43] LABS: Hematocrit 20.7 % (36.0-46.0); White Blood Cell 10.4 10^3/uL (4.4-10.8)
[2017-07-26 16:45] LABS: Mean Corpuscular Hemoglobin 31.5 pg (28.0-32.0); Mean Corpuscular Hgb Conc. 30.8 g/dL (32.0-36.0); Mean Corpuscular Volume 102.3 fL (80.0-100.0); Mean Platelet Volume 9.8 fL (6.9-10.8); Platelet Count (auto) 83 10^3/uL (140-450); Red Cell Distribution Width 19.6 % (11.8-14.3)
[2017-07-26 16:51] LABS: Hemoglobin 6.4 g/dL (12.2-16.2)
[2017-07-26 16:53] LABS: Myelocytes % 0; Promyelocytes % 0; Reactive Lymphocytes 0
[2017-07-26 16:59] LABS: Potassium 3.6 mmol/L (3.5-5.1)
[2017-07-26 17:06] LABS: Lactic Acid w/Reflex 10.6 mmol/L (0.4-2.0)
[2017-07-26 17:33] LABS: BUN/Creatinine Ratio 11.8
[2017-07-26 17:34] LABS: Calcium 5.1 mg/dL (8.5-10.1)
[2017-07-26 17:38] LABS: REFLEX LACTIC ACID YES OR NO YES
[2017-07-26 17:48] LABS: Hematocrit 18.8 % (36.0-46.0)
[2017-07-26 17:57] LABS: INR 2.31 (0.9-1.15); Prothrombin Time 25.4 sec (9.37-12.3)
[2017-07-26] MEDS ORDERED: PIPERACILLIN-TAZOB 2.25GM 50 ML IV SCH (18:00)
[2017-07-26] MEDS ORDERED: FUROSEMIDE 100 MG/10ML VIAL IV SCH (18:00)
[2017-07-26 18:03] LABS: Hemoglobin 5.7 g/dL (12.2-16.2)
[2017-07-26] MEDS: AMPICILLIN INJ 500 MG in SODIUM CHL 0.9% 50 ML IV SCH ×2 (18:16→23:41)
[2017-07-26 18:25] LABS: Partial Thromboplastin Time 109.5 sec (22.64-33.71)
[2017-07-26] MEDS ORDERED: CALCIUM GLUC 4.65meq/50ml D5AE 50 ML IV ONE ×2 (18:30→18:55)
[2017-07-26] MEDS ORDERED: CALCIUM GLUC 4.65 MEQ/10ML 0 ML IV ONE (18:53)
[2017-07-26 19:31] LABS: Metamyelocytes % 1
[2017-07-26 19:32] LABS: Burr Cells MODERATE
[2017-07-26 19:33] LABS: Anisocytosis Slight; Macrocytosis Slight
[2017-07-26 19:34] LABS: Platelet Estimate Decreased
[2017-07-26] MEDS: NOREPINEPHRINE 8 MG/250ML KIT 250 ML IV SCH (22:16)
[2017-07-26] MEDS: ATORVASTATIN 20 MG TAB PO SCH (22:47)
[2017-07-27] MEDS: InsuLIN REG 1unit/0.01ml Soln (100units/ml) SC SCH ×3 (00:04→08:25)
[2017-07-27] MEDS: ACCU-CHEK COMFORT CURVE STRIP VI SCH ×2 (00:04→05:46)
[2017-07-27] MEDS: PHENYLEPHRINE INJ 20 MG in D5W 5% 250 ML IV SCH ×4 (00:57→06:48)
[2017-07-27] MEDS: ALBUTEROL SULF 2.5 MG/0.5ML(0.5%) NEB SOLN NEB SCH ×3 (02:07→10:00)
[2017-07-27] MEDS: IPRATROPIUM BROM 0.5 MG/2.5ML INH SOL NEB SCH ×3 (02:07→10:00)
[2017-07-27] MEDS: ACETYLCYSTEINE 10 %(100MG/ML) SOL 4ML NEB SCH ×3 (02:08→10:00)
[2017-07-27] MEDS: NOREPINEPHRINE 8 MG/250ML KIT 250 ML IV SCH (02:48)
[2017-07-27 02:57] LABS: Base Excess -26.1 mmol/L (-2.0-2.0); Blood 02Sat 58.9 % (96-100); Blood COHb 0.2 % (0.5-1.5); Blood MetHb 0.2 % (0.0-1.5); HCO3 6.4 mmol/L (22-26.0); HHb 40.9 % (0.0-5.0); MODE VENT - A/C; O2Hb 58.7 % (94.0-97.0); PCO2 35.3 mmHg (35.0-45.0); PIP 24; PO2 < 35.0 mmHg (80.0-100.0); Sample Type Arterial; pH 6.876 (7.350-7.450)
[2017-07-27] MEDS ORDERED: SODIUM BICARBONATE 8.4% INJ 50ML SYRINGE ONE ×2 (03:03→03:13)
[2017-07-27] MEDS ORDERED: SODIUM BICARBONATE 8.4 % INJ 50ML VIAL IV ONE ×2 (03:13→03:15)
[2017-07-27] MEDS ORDERED: SODIUM BICARB 50ML SYR 100 ML in SODIUM CHLORIDE 0.9% 1,000 ML IV SCH (03:15)
[2017-07-27] MEDS: MIDAZOLAM DRIP 50 mg/50mL 50 ML IV SCH (03:46)
[2017-07-27 03:54] LABS: Hemoglobin 10.3 g/dL (12.2-16.2); Red Cell Distribution Width 17.6 % (11.8-14.3)
[2017-07-27 03:57] LABS: Hematocrit 33.3 % (36.0-46.0); Mean Corpuscular Hemoglobin 30.6 pg (28.0-32.0); Mean Corpuscular Volume 98.5 fL (80.0-100.0); Mean Platelet Volume 9.3 fL (6.9-10.8); Platelet Count (auto) 57 10^3/uL (140-450); White Blood Cell 13.4 10^3/uL (4.4-10.8)
[2017-07-27 04:21] LABS: INR 1.53 (0.9-1.15); Prothrombin Time 16.7 sec (9.37-12.3)
[2017-07-27 04:26] LABS: Albumin 2.4 g/dL (3.4-5.0); BUN/Creatinine Ratio 11.5; Bilirubin, Total 0.9 mg/dL (0.2-1.0); Magnesium 1.7 mg/dL (1.6-2.6); Total Protein 4.5 g/dL (6.4-8.2)
[2017-07-27 04:40] LABS: Calcium 5.3 mg/dL (8.5-10.1)
[2017-07-27 04:51] LABS: Metamyelocytes % 0; Myelocytes % 0; Promyelocytes % 0; Reactive Lymphocytes 0
[2017-07-27] MEDS ORDERED: CALCIUM CHLOR(10%) 100MG/ML 10ML SYRINGE IV ONE (04:58)
[2017-07-27] MEDS ORDERED: CALCIUM GLUC 4.65 MEQ/10ML 10 ML IV ONE (04:58)
[2017-07-27 05:11] LABS: Anisocytosis Slight; Burr Cells MODERATE; Large Platelets FEW; Macrocytosis Slight; Platelet Estimate Decrea
[2017-07-27] MEDS ORDERED: MAGNESIUM SULFATE 1GM/100ML 100 ML IV ONE ×2 (05:18→05:30)
[2017-07-27 05:27] LABS: B-Type Natriuretic Peptide 2562.6 pg/mL (0-100)
[2017-07-27] MEDS ORDERED: CALCIUM GLUC 4.65meq/50ml D5AE 50 ML IV ONE (05:30)
[2017-07-27 05:46] LABS: Temperature: 22.4 C (20.0-25.0)
[2017-07-27] MEDS ORDERED: AMIODARONE HCL (50 MG/ ML) 3 ML VIAL IV ONE (06:20)
[2017-07-27] MEDS ORDERED: InsuLIN REG 1unit/0.01ml Soln (100units/ml) IV ONE (06:30)
[2017-07-27] MEDS ORDERED: AMIODARONE HCL 150 MG in D5W 5% 100 ML IV ONE (06:30)
[2017-07-27] MEDS: AMPICILLIN INJ 500 MG in SODIUM CHL 0.9% 50 ML IV SCH (06:48)
[2017-07-27 06:49] LABS: Allen Test Yes; Base Excess -21.2 mmol/L (-2.0-2.0); Blood 02Sat 98.3 % (96-100); Blood COHb 0.3 % (0.5-1.5); Blood MetHb 0.3 % (0.0-1.5); HCO3 6.2 mmol/L (22-26.0); HHb 1.7 % (0.0-5.0); MODE VENT - A/C; O2Hb 97.7 % (94.0-97.0); PCO2(T) 18.3 mmHg (35.0-45.0); PO2 176.1 mmHg (80.0-100.0); PO2(T) 171.2 mmHg (80.0-100.0); Sample Type Arterial; pH 7.128 (7.350-7.450)
[2017-07-27] MEDS ORDERED: cefTRIAXone 1GM/10ml IVPUSH 10 ML IV SCH (09:00)
[2017-07-27] MEDS: MUPIROCIN 2% OINT 22GM EACHNOSTRI SCH (09:47)
[2017-07-27] MEDS: SODIUM CHLOR 0.9% PF (SALINE LOCK) 10ML VIAL IV SCH (09:47)
[2017-07-27] MEDS: ASPirin 81 mg TAB PO SCH (09:47)
[2017-07-27] MEDS: ENOXAPARIN SOD 30 MG/0.3 ML SYRINGE SC SCH (09:47)
[2017-07-27] MEDS ORDERED: PANTOPRAZOLE 40 MG/10 ML VIAL IV SCH (10:00)
[2017-07-27] MEDS ORDERED: SODIUM BICARBONATE 50ML VIAL 150 ML in D5W 5% 1,000 ML IV SCH (10:00)
[2017-07-27] MEDS ORDERED: MIDAZOLAM DRIP 100 mg/100mL NS 100 ML IV SCH (10:30)
[2017-07-27] MEDS ORDERED: MORPHINE SULF INJ 2 MG/ML SYRINGE 1ML ONE (10:41)
[2017-07-27] MEDS ORDERED: MORPHINE SULF INJ 2 MG/ML SYRINGE 1ML IV PRN (10:45)
[2017-07-28 15:15] LABS: Vitamin D 25-Hydroxy 17 ng/mL (.); Vitamin D-2 25-Hydroxy <1.0 ng/mL (.)
== END 2017-07-27 16:06 | disposition expired | DRG 720 ==
LOC: EDBD 10:54 → ER 10:54 → TELE 10:55 → ICU WEST 22:02
PROVIDERS: ADMIT Internal Medicine; ATTEND Internal Medicine
PROC: 02HV33Z Insertion of Infusion Device into Superior Vena Cava, Percutaneous Approach (ICD-10-PCS; 2017-07-24)
PROC: 30233L1 Transfusion of Nonautologous Fresh Plasma into Peripheral Vein, Percutaneous Approach (ICD-10-PCS; principal; 2017-07-25)
PROC: 30233N1 Transfusion of Nonautologous Red Blood Cells into Peripheral Vein, Percutaneous Approach (ICD-10-PCS; 2017-07-25)
PROC: 30233K1 Transfusion of Nonautologous Frozen Plasma into Peripheral Vein, Percutaneous Approach (ICD-10-PCS; 2017-07-25)
PROC: 5A1945Z Respiratory Ventilation, 24-96 Consecutive Hours (ICD-10-PCS; 2017-07-26)
PROC: 0BH17EZ Insertion of Endotracheal Airway into Trachea, Via Natural or Artificial Opening (ICD-10-PCS; 2017-07-26)
PROC: 4A023N7 Measurement of Cardiac Sampling and Pressure, Left Heart, Percutaneous Approach (ICD-10-PCS; 2017-07-26)
PROC: B2151ZZ Fluoroscopy of Left Heart using Low Osmolar Contrast (ICD-10-PCS; 2017-07-26)
PROC: B2111ZZ Fluoroscopy of Multiple Coronary Arteries using Low Osmolar Contrast (ICD-10-PCS; 2017-07-26)
DX: A41.9 Sepsis, unspecified organism (principal); I21.09 ST elevation (STEMI) myocardial infarction involving other coronary artery of anterior wall; J96.01 Acute respiratory failure with hypoxia; N17.0 Acute kidney failure with tubular necrosis; I63.512 Cerebral infarction due to unspecified occlusion or stenosis of left middle cerebral artery; N18.6 End stage renal disease; I47.2 Ventricular tachycardia; D68.9 Coagulation defect, unspecified; S22.31XA Fracture of one rib, right side, initial encounter for closed fracture; N17.9 Acute kidney failure, unspecified; E43 Unspecified severe protein-calorie malnutrition; G93.41 Metabolic encephalopathy; G93.1 Anoxic brain damage, not elsewhere classified; E87.0 Hyperosmolality and hypernatremia; M62.82 Rhabdomyolysis; B95.2 Enterococcus as the cause of diseases classified elsewhere; D50.9 Iron deficiency anemia, unspecified; D63.8 Anemia in other chronic diseases classified elsewhere; E03.9 Hypothyroidism, unspecified; E11.22 Type 2 diabetes mellitus with diabetic chronic kidney disease; E11.649 Type 2 diabetes mellitus with hypoglycemia without coma; E86.0 Dehydration; E78.5 Hyperlipidemia, unspecified; E87.1 Hypo-osmolality and hyponatremia; F17.200 Nicotine dependence, unspecified, uncomplicated; J44.9 Chronic obstructive pulmonary disease, unspecified; N39.0 Urinary tract infection, site not specified; G40.909 Epilepsy, unspecified, not intractable, without status epilepticus; G89.29 Other chronic pain; I48.91 Unspecified atrial fibrillation; I51.81 Takotsubo syndrome; Z79.82 Long term (current) use of aspirin; Z79.899 Other long term (current) drug therapy; Z82.3 Family history of stroke; Z83.3 Family history of diabetes mellitus; Z86.74 Personal history of sudden cardiac arrest
CPT/HCPCS: 36415; 36569; 36600; 51702; 70450; 71010; 71101; 76775; 80048; 80053; 80061; 80307; 80320; 81001; 82040; 82306; 82550; 82570; 82607; 82746; 82805; 82962; 83605; 83735; 83880; 83935; 83970; 84100; 84300; 84443; 84484; 85007; 85014; 85018; 85025; 85027; 85045; 85379; 85610; 85652; 85730; 86141; 86850; 86900; 86901; 86920; 87040; 87070; 87077; 87081; 87086; 87088; 87186; 87205; 93005; 94003; 94640; 95819; 96361; 96374; 96375; 99152; 99291; C1769; C9113; J0330; J0610; J0696; J1815; J2250; J2543; J3490; J7060; Q9967